=== PATIENT | male | born 1940 | race Caucasian/White ===

== ENCOUNTER 2018-09-12 09:46 | Emergency (ER) | payer MEDICARE, OTHER ==
[~2018-09-12] VITALS: Ht 172.7 cm; Wt 106.8 kg
[2018-09-12 10:51] LABS: BASOPHILS # (AUTO) 0.1 X10'3 (0-0.2); BASOPHILS % (AUTO) 0.9 % (0-1); EOSINOPHILS # (AUTO) 0.1 X10'3 (0-0.9); EOSINOPHILS % (AUTO) 1.2 % (0-6); HEMATOCRIT 35.4 % (42.0-52.0); HEMOGLOBIN 12.2 g/dl (14.0-17.9); LYMPHOCYTES # (AUTO) 0.7 X10'3 (1.1-4.8); LYMPHOCYTES % (AUTO) 10.6 % (21-51); MEAN CORPUSCULAR HEMOGLOBIN 40.9 PG (27.0-31.0); MEAN CORPUSCULAR HGB CONC 34.5 g/dL (33.0-36.5); MEAN CORPUSCULAR VOLUME 118.5 FL (78-98); MEAN PLATELET VOLUME 6.5 FL (7.4-10.4); MONOCYTES # (AUTO) 0.6 X10'3 (0-0.9); MONOCYTES % (AUTO) 8.4 % (2-12); NEUTROPHILS # (AUTO) 5.4 X10'3 (1.8-7.7); NEUTROPHILS % (AUTO) 78.9 % (42-75); PLATELET COUNT 158 X10'3 (140-440); RED BLOOD COUNT 2.99 X10'6 (4.70-6.10); RED CELL DISTRIBUTION WIDTH 15.8 % (11.5-14.5); WHITE BLOOD COUNT 6.8 X10'3 (4.5-11.0)
[2018-09-12 11:02] LABS: ALANINE AMINOTRANSFERASE 22 U/L (12-78); ALBUMIN 2.9 G/DL (3.4-5.0); ALBUMIN/GLOBULIN RATIO 0.7 (1.1-1.5); ALKALINE PHOSPHATASE 78 IU/L (46-116); ANION GAP 9 (8-16); ASPARTATE AMINO TRANSFERASE 22 U/L (10-37); BILIRUBIN,TOTAL 1.4 MG/DL (0.1-1.0); BLOOD UREA NITROGEN 13 MG/DL (7-18); BUN/CREATININE RATIO 9.8 (5.4-32.0); CALCIUM 9.2 MG/DL (8.5-10.1); CHLORIDE 103 MMOL/L (99-107); CREATININE 1.33 MG/DL (0.60-1.10); GLUCOSE 138 MG/DL (70-104); POTASSIUM 3.7 MMOL/L (3.5-5.1); SODIUM 139 MMOL/L (135-145); TOTAL CARBON DIOXIDE 27.1 MMOL/L (24-32); TOTAL PROTEIN 7.2 G/DL (6.4-8.2); eGFR 52 ML/MIN
[2018-09-12 11:28] LABS: PLATELET ESTIMATE NORMAL
[2018-09-12 11:54] VITALS: BP 144/73
--- NOTE | 2018-09-12 12:55 | NUR ---
CALLED TO [facility] TO EVAL PATIENT. HE HAS BLE CELLULITIS AND REQUIRES DAILY WOUND CARE. CONTACTED [facility] AND THEY STATE THAT THEY CAN PROVIDE DAILY WOUND CARE FOR SHORT TERM AND MAY BE ABLE TO OPEN ON WEDNESDAY. FAXED INFO TO [facility]. AWAITING RESPONSE. PATIENT STATES THAT HE TAKES BUS TO SEE DR LAMB, SENIOR NET SOFTWARE ENGINEER AT THE [facility]. HE STATES THAT HE WOULD BE WILLING TO TAKE BUS TOMORROW AND WEDNESDAY FOR WOUND CARE. THEN HH RN COULD ASSIST WITH WOUND CARE STARTING . PATIENT HAS MOTORIZED WC AND WALKER. HE IS ABLE TO TAKE WC TO [facility] WHEN HE NEEDS GROCERIES. HE STATES HE HAS BARS IN HIS BATHROOM AND IS ABLE TO TOILET HIMSELF. HE CAN DRESS AND FEED HIMSELF. HE STATES HE WALKS IN HIS HOME BY HOLDING THE CLEMENTS AND FURNITURE. STILL AWAITING RESPONSE FROM [facility]. WILL CONTINUE TO FOLLOW.
--- NOTE | 2018-09-12 13:48 | NUR ---
VERIFIED WITH ANGELIA AT [facility]. THEY WILL BE AVAILABLE TO OPEN PATIENT ON WEDNESDAY. NOTIFIED CONOR MARTÍNEZ OF PLAN.
--- NOTE | 2018-09-12 13:54 | NUR ---
NASIM, CAREER DEVELOPMENT FACILITATOR, CALLED AND IS COORDINATING HOME [facility]ALTH CARE FOR WOUND CARE THAT WILL BE STARTING ON WEDNESDAY, 09/15. HOME CARE NURSE IS EXPECTED TO COME SEE THE PATIENT SHORTLY, WHILE HE IS STILL HERE IN THE ER. [facility] FOR WOUND CARE, PRIOR TO HOME CARE VISITS.
[2018-09-12] MEDS ORDERED: LEVO500T2 PO (14:29)
--- NOTE | 2018-09-12 14:31 | NUR ---
CALLED [facility] FOR PT
== END 2018-09-12 14:41 | disposition home or self-care (01) ==
LOC: ER 09:46
DX: I89.0 Lymphedema, not elsewhere classified (principal); L97.311 Non-pressure chronic ulcer of right ankle limited to breakdown of skin; Z79.899 Other long term (current) drug therapy
CPT/HCPCS: 36415; 80053; 85025; 99284